=== PATIENT | female | born 1955 | race Caucasian/White ===

== ENCOUNTER 2023-10-05 19:25 | Observation (INO) ==
[2023-10-05 20:31] LABS: ABS Lymphocytes 1.7 10^3/uL (1.0-4.8); ABS Monocytes 1.1 10^3/uL (0.0-0.9); ABS Neutrophils 6.2 10^3/uL (1.5-7.6); ABS Nucleated RBC 0.01 10^3/ul; Eosinophil % 0.2 %; Hematocrit 39.8 % (35-45); Hemoglobin 13.4 g/dL (11.5-14.3); INR 1.11 (0.83-1.13); Lymphocyte % 18.7 %; Mean Corpuscular Hemoglobin 29.1 pg (27-33); Mean Corpuscular Hgb Conc 33.6 g/dL (31-36); Mean Corpuscular Volume 86.6 fL (80-97); Mean Platelet Volume 9.1 fL (7.5-11.2); Nucleated Red Blood Cells % 0.1 %/100WBC (0.0-0.8); Platelet Count 257 10^3/uL (150-450); Red Cell Distribution Width 13.9 % (12-17); White Blood Count 9.1 10^3/uL (3.8-11.8)
[2023-10-05 20:44] LABS: Albumin 4.5 g/dL (3.2-5.2); Calcium 9.7 mg/dL (8.6-10.3); Creatinine, Serum 0.74 mg/dL (0.51-0.95); Globulin 2.2 g/dL (2-4); Potassium 3.4 mmol/L (3.5-5.0); Total Bilirubin 0.8 mg/dL (0.2-1.0); Total Protein 6.7 g/dL (6.4-8.9); eGFR CKD-EPI 88.6 (>60)
[2023-10-05 21:09] LABS: High Sensitivity Troponin 1 Hr 7 pg/mL (<15)
[2023-10-05] MEDS: Iohexol 350 (CONTRAST) 500 ML MDV IV ONE (22:33)
[2023-10-05] MEDS: Lactated Ringers 1000 ml BAG 1,000 ML IV ONE (23:53)
[2023-10-06] MEDS: Lactated Ringers 1000 ml BAG 1,000 ML IV SCH (04:53)
[2023-10-06] MEDS: cefTRIAXone 1 gm/50 mL D5W 1 GM/50 ML BAG IV SCH (04:54)
[2023-10-06] MEDS: Azithromycin 500 mg/250 ml NS 500 MG/250 ML BAG IVPB SCH (05:02)
[2023-10-06] MEDS: Enoxaparin 40 MG/0.4 ML SYR SUBCUT SCH (05:05)
[2023-10-06] MEDS: Potassium Chlor 20 meq TAB.ER PO ONE ×2 (05:06→09:09)
[2023-10-06 06:02] LABS: ABS Lymphocytes 1.6 10^3/uL (1.0-4.8); ABS Monocytes 0.9 10^3/uL (0.0-0.9); ABS Neutrophils 3.4 10^3/uL (1.5-7.6); Eosinophil % 0.3 %; Hematocrit 34.3 % (35-45); Hemoglobin 11.7 g/dL (11.5-14.3); Lymphocyte % 27.1 %; Mean Corpuscular Hemoglobin 29.5 pg (27-33); Mean Corpuscular Hgb Conc 34.1 g/dL (31-36); Mean Corpuscular Volume 86.4 fL (80-97); Mean Platelet Volume 8.4 fL (7.5-11.2); Nucleated Red Blood Cells % 0.1 %/100WBC (0.0-0.8); Platelet Count 215 10^3/uL (150-450); Red Blood Count 3.97 10^6/uL (3.63-4.92); Red Cell Distribution Width 13.7 % (12-17)
[2023-10-06 06:54] LABS: Calcium 8.7 mg/dL (8.6-10.3); Creatinine, Serum 0.61 mg/dL (0.51-0.95); Magnesium 1.7 mg/dL (1.9-2.7); Phosphorus 3.4 mg/dL (2.5-5.0); Potassium 3.5 mmol/L (3.5-5.0); eGFR CKD-EPI 97.9 (>60)
[2023-10-06 07:40] LABS: C Reactive Protein 11.73 mg/L (<8.01)
[2023-10-06] MEDS: Magnesium Sulfate 2 gm BAG 2 GM/50 ML BAG IVPB ONE (09:09)
[2023-10-07 06:02] LABS: ABS Eosinophils 0.1 10^3/uL (0.0-0.5); ABS Lymphocytes 1.8 10^3/uL (1.0-4.8); ABS Monocytes 0.6 10^3/uL (0.0-0.9); ABS Neutrophils 2.2 10^3/uL (1.5-7.6); Eosinophil % 2.6 %; Hematocrit 34.4 % (35-45); Hemoglobin 11.8 g/dL (11.5-14.3); Lymphocyte % 37.5 %; Mean Corpuscular Hemoglobin 29.6 pg (27-33); Mean Corpuscular Hgb Conc 34.2 g/dL (31-36); Mean Corpuscular Volume 86.6 fL (80-97); Mean Platelet Volume 8.5 fL (7.5-11.2); Platelet Count 222 10^3/uL (150-450); Red Blood Count 3.97 10^6/uL (3.63-4.92); Red Cell Distribution Width 13.9 % (12-17); White Blood Count 4.8 10^3/uL (3.8-11.8)
[2023-10-07 06:47] LABS: Calcium 8.7 mg/dL (8.6-10.3); Creatinine, Serum 0.59 mg/dL (0.51-0.95); eGFR CKD-EPI 98.7 (>60)
[2023-10-07 08:37] LABS: Magnesium 1.9 mg/dL (1.9-2.7)
[2023-10-07] MEDS: Azithromycin 500 mg/250 ml NS 500 MG/250 ML BAG IVPB SCH (10:40)
[2023-10-07] MEDS: CARBOXYMETHYLCELLULOSE 0.5% BOTH EYES SCH (10:41)
[2023-10-07] MEDS: OMEGA PO SCH (10:42)
[2023-10-07] MEDS: cefTRIAXone 1 gm/50 mL D5W 1 GM/50 ML BAG IV SCH (10:42)
[2023-10-07] MEDS: FATTY ACID PO SCH (10:42)
[2023-10-07] MEDS: CALCIUM PHOS DIBAS VITAMIN D3 PO SCH (12:00)
[2023-10-07] MEDS: CYANOCOBALAMIN COBAMAMIDE SL SCH (12:52)
[2023-10-07] MEDS: [UNRECOGNIZED DRUG - OTHER] SL SCH (12:52)
[2023-10-07 14:56] VITALS: BP 132/73
== END 2023-10-07 14:45 | disposition home or self-care (01) ==
LOC: ED 19:25 → EDHOLD 19:25 → SUATTDRO 10-06 02:58 → ICU 10-06 11:32
PROVIDERS: ADMIT Internal Medicine; ATTEND Internal Medicine

== ENCOUNTER 2023-11-22 12:32 | Observation (INO) ==
[2023-11-22 13:32] LABS: ABS Lymphocytes 0.6 10^3/uL (1.0-4.8); ABS Monocytes 0.7 10^3/uL (0.0-0.9); ABS Neutrophils 10.9 10^3/uL (1.5-7.6); Hematocrit 37.4 % (35-45); Hemoglobin 12.8 g/dL (11.5-14.3); Mean Corpuscular Hemoglobin 29.8 pg (27-33); Mean Corpuscular Hgb Conc 34.1 g/dL (31-36); Mean Corpuscular Volume 87.4 fL (80-97); Mean Platelet Volume 8.4 fL (7.5-11.2); Platelet Count 316 10^3/uL (150-450); Red Blood Count 4.28 10^6/uL (3.63-4.92); Red Cell Distribution Width 13.4 % (12-17); White Blood Count 12.2 10^3/uL (3.8-11.8)
[2023-11-22 13:40] LABS: Activated Partial Thrombo Time 31.9 seconds (26.0-38.0); INR 1.42 (0.85-1.14)
[2023-11-22 14:14] LABS: Albumin 3.8 g/dL (3.2-5.2); Albumin/Globulin Ratio 1.4 (1-3); C Reactive Protein 126.14 mg/L (<8.01); Calcium 9.1 mg/dL (8.6-10.3); Creatinine, Serum 0.78 mg/dL (0.51-0.95); Globulin 2.8 g/dL (2-4); Total Bilirubin 1.2 mg/dL (0.2-1.0); Total Protein 6.6 g/dL (6.4-8.9); eGFR CKD-EPI 83.2 (>60)
[2023-11-22] MEDS ORDERED: Vancomycin 1,000 MG in NS 0.9% 250 ml 250 ML IVPB ONE (15:37)
[2023-11-22 15:44] LABS: High Sensitivity Troponin 1 Hr 3 pg/mL (<15)
[2023-11-22] MEDS: Piperacillin/Tazobac 3.375 BAG 3.375 GM/100 ML BAG IV ONE (15:55)
[2023-11-22 15:59] LABS: Urine Appearance Clear; Urine Bilirubin Negative (Negative); Urine Blood 1+ (Negative); Urine Color Yellow; Urine Glucose Trace (Negative); Urine Ketones 1+ (Negative); Urine Nitrite Negative (Negative); Urine Protein Trace (Negative); Urine Specific Gravity 1.014 (1.002-1.030); Urine Urobilinogen Negative (Negative)
[2023-11-22] MEDS: NS 0.9% 1000 ml BAG 1,000 ML IV ONE (15:59)
[2023-11-22 16:31] LABS: Urine Bacteria Absent /HPF (Absent); Urine Red Blood Cell Trace(0-2/hpf) /HPF (0-Trace); Urine Squamous Epithelial Cell Present /HPF (Absent); Urine White Blood Cell Trace(0-5/hpf) /HPF (0-Trace)
[2023-11-22] MEDS: Vancomycin 750 MG in NS 0.9% 250 ML IVPB ONE (17:24)
[2023-11-22] MEDS ORDERED: Senna TAB 8.6 mg TAB PO PRN (21:10)
[2023-11-22] MEDS ORDERED: Polyethylene Glycol 3350 17 GM PACKET PO PRN (21:10)
[2023-11-22 21:15] LABS: Osmolality Serum 280 mOsm/kg (275-295)
[2023-11-22] MEDS: cefTRIAXone 1 gm/50 mL D5W 1 GM/50 ML BAG IV SCH (22:17)
[2023-11-22] MEDS: Heparin 5000 UNITS/ML 1 mL VIAL SUBCUT SCH (22:17)
[2023-11-22] MEDS: Timolol 0.25% OPHTH.SOLN BTL BOTH EYES SCH (22:24)
[2023-11-23] MEDS: MAGNESIUM GLYCINATE PO SCH (00:15)
[2023-11-23] MEDS: [UNRECOGNIZED DRUG - OTHER] BOTH EYES SCH (00:15)
[2023-11-23] MEDS: HYPROMELLOSE BOTH EYES SCH (00:15)
[2023-11-23] MEDS: Azithromycin 500 mg/250 ml NS 500 MG/250 ML BAG IVPB SCH (01:31)
[2023-11-23 06:58] LABS: ABS Lymphocytes 1.3 10^3/uL (1.0-4.8); ABS Monocytes 1.1 10^3/uL (0.0-0.9); ABS Neutrophils 6.3 10^3/uL (1.5-7.6); Eosinophil % 0.1 %; Hematocrit 31.1 % (35-45); Hemoglobin 10.8 g/dL (11.5-14.3); Lymphocyte % 15.2 %; Mean Corpuscular Hemoglobin 30.3 pg (27-33); Mean Corpuscular Hgb Conc 34.7 g/dL (31-36); Mean Corpuscular Volume 87.4 fL (80-97); Mean Platelet Volume 8.6 fL (7.5-11.2); Platelet Count 255 10^3/uL (150-450); Red Blood Count 3.56 10^6/uL (3.63-4.92); Red Cell Distribution Width 13.5 % (12-17); White Blood Count 8.7 10^3/uL (3.8-11.8)
[2023-11-23 07:35] LABS: Albumin 2.9 g/dL (3.2-5.2); Albumin/Globulin Ratio 1.3 (1-3); Calcium 7.9 mg/dL (8.6-10.3); Creatinine, Serum 0.62 mg/dL (0.51-0.95); Globulin 2.2 g/dL (2-4); Magnesium 1.9 mg/dL (1.9-2.7); Total Bilirubin 0.7 mg/dL (0.2-1.0); Total Protein 5.1 g/dL (6.4-8.9); eGFR CKD-EPI 97.5 (>60)
[2023-11-23] MEDS: NALTREXONE PO SCH (09:14)
[2023-11-23] MEDS: PTO: Timolol 0.5% OPTH.SOL BTL BOTH EYES SCH (09:15)
[2023-11-23] MEDS: NF: Vibegron 75 MG TAB (NF) PO SCH (09:17)
[2023-11-23 11:56] LABS: Urine Osmo 728 mOsm/kg (150-1150)
[2023-11-23] MEDS: cefTRIAXone 1 gm/50 mL D5W 1 GM/50 ML BAG IV SCH (20:44)
[2023-11-24] MEDS: Azithromycin 500 mg/250 ml NS 500 MG/250 ML BAG IVPB SCH (00:42)
[2023-11-24 06:34] LABS: ABS Lymphocytes 1.4 10^3/uL (1.0-4.8); ABS Monocytes 1.1 10^3/uL (0.0-0.9); ABS Neutrophils 6.4 10^3/uL (1.5-7.6); Eosinophil % 0.1 %; Hematocrit 30.9 % (35-45); Hemoglobin 10.8 g/dL (11.5-14.3); Lymphocyte % 15.5 %; Mean Corpuscular Hemoglobin 30.3 pg (27-33); Mean Corpuscular Hgb Conc 34.9 g/dL (31-36); Mean Corpuscular Volume 86.8 fL (80-97); Mean Platelet Volume 8.7 fL (7.5-11.2); Platelet Count 280 10^3/uL (150-450); Red Blood Count 3.56 10^6/uL (3.63-4.92); Red Cell Distribution Width 13.7 % (12-17)
[2023-11-24 08:34] LABS: Calcium 8.1 mg/dL (8.6-10.3); Creatinine, Serum 0.49 mg/dL (0.51-0.95); Potassium 4.2 mmol/L (3.5-5.0); eGFR CKD-EPI 103.2 (>60)
[2023-11-24 09:08] VITALS: BP 117/68
== END 2023-11-24 12:30 | disposition home or self-care (01) ==
LOC: ED 12:32 → MED 12:32 → SUATTDRO 18:57 → MED 23:08 → ED 23:08
PROVIDERS: ADMIT Hospitalist; ATTEND Internal Medicine